=== PATIENT | male | born 1960 | race Caucasian/White ===

== ENCOUNTER 2017-07-20 09:51 | Day surgery (SDC) | payer OTHER ==
[~2017-07-20] VITALS: Ht 175.3 cm; Wt 56.0 kg
[~2017-07-20 09:51] MED LIST: AMLO5 PO; ATOR40TA PO; GABA600 PO; IBUP800 PO; LOSA50 PO; NICO21TP; Prinivil10 MG PO
[2017-07-20] MEDS ORDERED: CLOP75 PO (14:21)
[2017-07-20] MEDS ORDERED: ASPI325EC PO (14:21)
== END 2017-07-20 20:55 | disposition home or self-care (01) ==
LOC: MHTC 09:51 → ICUW 15:03 → MHTC 20:55
PROC: 047D3EZ Dilation of Left Common Iliac Artery with Two Intraluminal Devices, Percutaneous Approach (ICD-10-PCS; principal; 2017-07-20)
PROC: 047C3ZZ Dilation of Right Common Iliac Artery, Percutaneous Approach (ICD-10-PCS; principal; 2017-07-20)
DX: I70.211 Atherosclerosis of native arteries of extremities with intermittent claudication, right leg (principal); I70.202 Unspecified atherosclerosis of native arteries of extremities, left leg; F41.9 Anxiety disorder, unspecified; F17.210 Nicotine dependence, cigarettes, uncomplicated; E78.5 Hyperlipidemia, unspecified
CPT/HCPCS: 37221; 75625; 85347; 99152; 99153; C1725; C1769; C1876; J1644; J2250; J2720; J3010; J7030; J7040; Q9967

== ENCOUNTER → 2019-01-01 | Outpatient (CLI) | payer OTHER ==
[~2019-01-01] MED LIST changes: +ASPI325EC PO; +CLOP75 PO
[2019-01-03 14:32] LABS: Stool Occult Bld Immuno 1 Negative (NEGATIVE)
== END | disposition home or self-care (01) ==
LOC: LAB 06:00 → LAB SHORT 06:00
PROVIDERS: Nurse Practitioner Family
DX: Z12.11 Encounter for screening for malignant neoplasm of colon (principal)
CPT/HCPCS: G0328